=== PATIENT | male | born 1960 | race Caucasian/White ===

== ENCOUNTER 2020-05-19 06:59 | Outpatient (CLI) | payer BC, SELFPAY ==
--- NOTE | ~2020-05-19 | XR_ITS ---
XR thoracic spine min 4V DATE: 05/19/2020 07:27 INDICATION: Back pain TECHNIQUE: AP, lateral, swimmer's and bilateral oblique views COMPARISON: None FINDINGS: There is degenerative spurring of the lower thoracic spine. No fracture or dislocation or b one destruction. The thoracic pedicles are intact. No paraspinal soft tissue thickening. IMPRESSION: Degenerative spurring of the lower thoracic spine Reviewed, dictated and finalized at location A.
--- NOTE | ~2020-05-19 | XR_ITS ---
XR lumbar spine min 4V DATE: 05/19/2020 07:27 INDICATION: Low back pain, thoracic back pain TECHNIQUE: AP, lateral, bilateral oblique and coned lateral lumbosacral views COMPARISON: None FINDINGS: Normal alignment of the lumbar spine. No fracture or bone destruction, spondylolysis or spo ndylolisthesis. The lumbar pedicles are intact. The sacroiliac joints are intact. IMPRESSION: No significant abnormality Reviewed, dictated and finalized at location A. IMPRESSION: No significant abnormality
== END 2020-05-19 07:00 | disposition home or self-care (01) ==
LOC: ANHIMG 07:04
PROVIDERS: PCP Family Medicine; Visit Provider Family Medicine
DX: M54.6 Pain in thoracic spine (principal)
CPT/HCPCS: 72074; 72110

== ENCOUNTER 2021-12-01 15:29 | Outpatient (CLI) | payer BC, SELFPAY ==
--- NOTE | 2021-12-01 15:37 | ECG_ITS ---
Measurements Intervals [place] Rate: 68 P: 33 CT: 147 QRS: -10 QRSD: 109 T: 28 QT: 400 QTc: 426 Interpretive Statements SINUS RHYTHM LEFTWARD AXIS BORDERLINE ECG NO PREVIOUS ECG AVAILABLE FOR COMPARISON Electronically Signed On 12-01-2021 16:07:14 CDT by Thien Burden M.D.
[2021-12-01 16:18] LABS: Anion Gap 9 mmol/L (8-16); Blood Urea Nitrogen 22 mg/dL (9-20); Calcium 8.9 mg/dL (8.4-10.2); Carbon Dioxide 27 mmol/L (22-30); Chloride 101 mmol/L (98-107); Estimated Glomerular Filt Rate > 60; Glucose 89 mg/dL (65-110); Potassium 3.8 mmol/L (3.4-5.0); Sodium 137 mmol/L (137-145)
== END 2021-12-01 15:30 | disposition home or self-care (01) ==
PROVIDERS: Anesthesiology; PCP Family Medicine; Visit Provider Urology
DX: E11.65 Type 2 diabetes mellitus with hyperglycemia (principal); Z79.899 Other long term (current) drug therapy; E78.2 Mixed hyperlipidemia; I10 Essential (primary) hypertension; Z01.818 Encounter for other preprocedural examination; R94.31 Abnormal electrocardiogram [ECG] [EKG]
CPT/HCPCS: 36415; 80048; 93005

== ENCOUNTER 2021-12-08 00:28 | Day surgery (SDC) | payer BC, SELFPAY ==
[2021-11-29 09:25] VITALS: BMI 36.0
--- NOTE | 2021-11-29 09:36 | PC.NURSE ---
Report to the Outpatient Waiting Room, entrance under the green pavilion located off [facility], at time 7:30 on date 12/08/21. OR Time: 9:30. - You and your visitor will be asked a series of questions to screen for COVID 19 for your protection. - A mask is required within the hospital. One visitor will be allowed to accompany the patient into the hospital. Patients visitor will be instructed to remain with patient at all times or leave the building. We will allow the visitor to come back to the postoperative area when patient is ready. Preoperative COVID Testing Requirements: No COVID Test needed if: (proof is required; if not received patient will have Rapid Test prior to entry) - Patient has received COVID Vaccine at least 14 days prior to procedure date or - Patient has positive COVID test result within last 90 days of surgery date. COVID Test needed if above criteria is not met Patients may have clear liquids (water, carbonated beverages, clear teas, apple juice) until 3 hours prior to surgery with a maximum of 20 ounces. - No food from midnight until time of surgery Take the following medications with a SIP of water the morning of surgery: CITALOPRAM, LEVOTHYROXINE Medications to discontinue per physician: VITAMINS/SUPPLEMENTS Date to take last dose: 12/04/21 Please no make-up, nail tamazight, hairspray, perfume, deodorant, or body powder the day of surgery. No jewelry (including any body piercings) or valuables the day of surgery, leave them at home. Please take a shower or bath the night before, or the morning of, surgery with an antibacterial soap. Wear comfortable, loose fitting clothing. - Jewelry must be removed prior to entering the operating room. Rings and piercings that are not removed may be cut off. - The hospital will not accept responsibility for valuables. - Please leave all valuables, including medications, at home the day of surgery. If you are going home after surgery, a licensed stage driver must drive you home. - NO public transportation without another adult. - We recommend that an adult stay with you for 24 hours following discharge. - We also recommend that you do not drive, make important decision, drink alcoholic beverages, or take any drugs that were not prescribed by your health care provider for at least 24 hours after your discharge time. Follow any additional instructions given to you from your surgeon. Telephone instructions given to PRIYANKA LINCOLN and asked if any additional questions and then verbalized understanding. Patient advised to call surgeon office or pre surgery nurse liaison [phone] if any additional questions.
--- NOTE | 2021-12-01 13:36 | PM.HPGS ---
History of Present Illness History of Present Illness Consent: Risks, benefits, and alternatives have been discussed and questions answered. Patient agrees to proceed with procedure. Chief complaint: bph Narrative: Carlos Painter is a 61 year old male the with a history of progressive outlet obstructive voiding symptoms. Specifically he reports urinary frequency urgency with diminished stream and nocturia. 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 There was no appreciable median lobe. Transrectal ultrasound showed prostate volume 72 g. Most recent PSA was 2.6. He has failed attempts at medical management in after discussion of therapeutic options, including but not limited to, TURP, observation, Rezum, laser prostatectomy and UroLift he elects for the latter. He is aware of the risk of this procedure including, but not limited to, adverse cardiopulmonary events, persistent irritable and/or obstructive voiding symptoms, hematuria with need for short-term catheterization. Review of Systems Cardiovascular: Cardiovascular: Denies chest pain, Denies lightheadedness, Denies palpitations and Denies dyspnea Respiratory: Respiratory: Denies dyspnea Gastrointestinal: Gastrointestinal: Denies diarrhea, Denies nausea and Denies vomiting Genitourinary: Genitourinary: Denies hematuria and Denies dysuria Endocrine: Endocrine: Denies palpitations PMFSH Past Medical History Medical History Obstructive sleep apnea Family History Family History Father Depression Family history of cardiovascular disease Family history of sudden , Onset Age: 50 Mother Hypertension Sibling Hypertension Family history of elevated blood lipids Social History Social History Smoking status: Never smoker Alcohol intake: current Drinks per week: 2 Substance use: never Substance use type: does not use Spiritual care concerns: No Meds Home Medications and Allergies Home Medications Medication Instructions Recorded Confirmed Type tadalafil 20 mg tablet 20 mg PO DAILY PRN #30 tablet 05/03/20 11/29/21 Rx tamsulosin 0.4 mg capsule 0.4 mg PO DAILY #90 cap 11/18/20 11/29/21 Rx simvastatin 20 mg tablet See Rx Instructions .ROUTE 03/29/21 11/29/21 Rx .COMPLEX #90 tablet citalopram 40 mg tablet See Rx Instructions .ROUTE 10/25/21 03/22/22 Rx .COMPLEX #90 tablet testosterone cypionate 200 mg/mL 200 mg IM WEEKLY #10 ml 08/26/21 11/29/21 Rx intramuscular oil valsartan 160 See Rx Instructions .ROUTE 09/14/21 11/29/21 Rx mg-hydrochlorothiazide 25 mg tablet .COMPLEX #90 tablet levothyroxine [Synthroid] 88 mcg PO DAILY 11/29/21 11/29/21 History magnesium 100 mg PO DAILY 11/29/21 11/29/21 History multivitamin 1 tablet PO DAILY 11/29/21 11/29/21 History vitamin B complex [Complex B-100] 1 tablet PO DAILY 11/29/21 11/29/21 History metformin 500 mg tablet,extended See Rx Instructions .ROUTE 12/01/21 Rx release 24 hr .COMPLEX #360 tablet Allergies Allergy/AdvReac Type Severity Reaction Status Date / Time No Known Allergies Allergy Unverified 11/29/21 09:22 Exam Const: General: no acute distress Resp: Effort & Inspection: normal respiratory effort GI: Inspection: non-distended GI Palp: No abdominal tenderness and No Guarding due to palpation present (GI) Auscultation: normal bowel sounds Assessment and Plan Assessment and plan (1) BPH loc w urin obs/LUTS: Code(s): N40.1 - Benign prostatic hyperplasia with lower urinary tract symptoms Status: Acute Assessment and Plan: Urolift
--- NOTE | 2021-12-07 15:18 | WPDANESEPPF ---
Anes - Initial Pre Proc Eval Procedure: Operation Date: 12/08/21 09:30 Proposed Procedures p Urolift - Jorge A Carmona MD Date/Time: 12/07/21 15:18 Surgeon: Jorge A Carmona MD Pre Op Diagnosis: bph Patient Data Age: 61 Gender: M Height: 1.7 m Weight: 104.33 kg Allergies Allergy/AdvReac Type Severity Reaction Status Date / Time No Known Allergies Allergy Verified 12/08/21 07:52 Home Medications Medication Instructions Recorded Confirmed Type tadalafil 20 mg tablet 20 mg PO DAILY PRN #30 tablet 05/03/20 12/08/21 Rx tamsulosin 0.4 mg capsule 0.4 mg PO DAILY #90 cap 11/18/20 12/08/21 Rx simvastatin 20 mg tablet See Rx Instructions .ROUTE 03/29/21 12/08/21 Rx .COMPLEX #90 tablet citalopram 40 mg tablet See Rx Instructions .ROUTE 07/04/21 12/08/21 Rx .COMPLEX #90 tablet testosterone cypionate 200 mg/mL 200 mg IM WEEKLY #10 ml 08/26/21 12/08/21 Rx intramuscular oil valsartan 160 See Rx Instructions .ROUTE 09/14/21 12/08/21 Rx mg-hydrochlorothiazide 25 mg tablet .COMPLEX #90 tablet levothyroxine [Synthroid] 88 mcg PO DAILY 11/29/21 12/08/21 History magnesium 100 mg PO DAILY 11/29/21 12/08/21 History multivitamin 1 tablet PO DAILY 11/29/21 12/08/21 History vitamin B complex [Complex B-100] 1 tablet PO DAILY 11/29/21 12/08/21 History metformin 500 mg tablet,extended See Rx Instructions .ROUTE 12/01/21 Rx release 24 hr .COMPLEX #360 tablet Patient hx anesthesia problems: none Family hx anesthesia problems: none Results Review: All pre-operative results and documents have been reviewed as part of the pre-operative evaluation. [facility] Past Medical History Medical History (Updated 12/07/21 @ 15:20 by Papi Horne MD) Anxiety BPH loc w urin obs/LUTS Diabetes Essential (primary) hypertension Hypothyroidism (acquired) Mixed hyperlipidemia Obesity (BMI 35.0-39.9 without comorbidity) Obstructive sleep apnea KT on CPAP Family History Family History Father Depression Family history of cardiovascular disease Family history of sudden , Onset Age: 50 Mother Hypertension Sibling Hypertension Family history of elevated blood lipids Social History Social History Smoking status: Never smoker Alcohol intake: current Drinks per week: 2 Substance use: never Substance use type: does not use Living arrangements: with family Spiritual care concerns: No Anes - Eval Final PreProcedure Day of Procedure 12/07/21 15:18 Patient weight: obese Heart: regular rate and rhythm Lungs: clear to auscultation and normal air movement Airway: Mallampati scale class II Neurological: alert and oriented Last oral intake: >/= 8 hours ASA classification: III Emergent: no Anesthetic plan: proceed Anesthesia type and monitoring: general GIVS and LMA Results Review: All pre-operative results and documents have been reviewed as part of the pre-operative evaluation. Informed Consent: The patient's anesthetic plan and its attendant risks and benefits were discussed with the patient/family/POA. Questions were solicited and answers provided to the satisfaction of the patient/family/POA.
[2021-12-08] VITALS (7 sets, daily range): BP systolic 107–150; BP diastolic 56–77; PULSE 54–91; RESP 16–20; TEMP 36.1–36.4; O2SAT 95–97; BMI 38.3
--- NOTE | 2021-12-08 06:30 | WPDHPUPDATE1 ---
History and Physical Update Update Date/Time: 12/08/21 06:30 History and Physical has been reviewed, including an updated exam of the patient. There are NO changes in the patient's condition. Risks, benefits, and alternatives have been discussed and questions answered. Patient agrees to proceed with procedure.
[2021-12-08] MEDS: LACTATED RINGERS 1,000 ML 30 ML IV CONT (08:20)
[2021-12-08 08:23] LABS: Glucose Point of Care 133 mg/dl (65-105)
[2021-12-08] MEDS: ceFAZolin 2 GM/D5W 50 ML 2 GM/50 ML BAG IVPB (08:56)
[2021-12-08] MEDS: LIDOCAINE HCL 2% GEL UROJET 10 ML PKG MUCOUS MEM (09:12)
--- NOTE | 2021-12-08 09:20 | W.PM.PROC2 ---
Procedure Note - Detailed Date of Procedure 12/08/21 Pre-op Diagnosis BPH Post-op Diagnosis Same Procedure Performed UroLift Surgeon Jorge A Carmona MD Anesthesia General Description of Procedure The patient was prepped and draped in a routine fashion after the uneventful induction of a general LMA anesthetic. A 20F cystoscope was inserted into the bladder. The cystoscopy bridge was replaced with a UroLift delivery device. The first treatment site was the patient's right side approximately 1.5cm distal to the bladder neck. The distal tip of the delivery device was then angled laterally approximately 20 degrees at this position to compress the lateral lobe. The trigger was pulled, thereby deploying a needle containing the implant through the prostate. The needle was then retracted, allowing one end of the implant to be delivered to the capsular surface of the prostate. The implant was then tensioned to assure capsular seating and removal of slack monofilament. The device was then angled back toward midline and slowly advanced proximally (typically 3 to 4 mm) until cystoscopic verification of the monofilament being centered in the delivery bay. The urethral end piece was then affixed to the monofilament thereby tailoring the size of the implant. Excess filament was then severed. The delivery device was then re-advanced into the bladder. The delivery device was then replaced with cystoscope and bridge and the implant location and opening effect was confirmed cystoscopically. The same procedure was then repeated on the left side, and two additional implants were delivered just proximal to the verumontanum, again one on right and one on left side of the prostate, following the same technique. Cystoscopy then revealed a persistent area of obstruction/protrusion from right lateral lobe so, an addition implant was delivered in the mid-prostate on the right side Therefore, a total of 5 implants were delivered. A final cystoscopy was conducted first to inspect the location and state of each implant and second, to confirm the presence of a continuous anterior channel was present through the prostatic urethra with irrigation flow turned off. The bladder was then filled with 150 cc irrigation fluid to assist the patient in void trial after the procedure, and all instruments were removed. At this point the cystoscope was removed and the patient was taken to the PACU in good condition. Estimated Blood Loss 0 Drains No Packing No Pathology None sent Complications No immediate complications Condition Stable Disposition PACU
[2021-12-08 09:34] LABS: Glucose Point of Care 112 mg/dl (65-105)
--- NOTE | 2021-12-08 09:41 | SUR.PHASEI ---
0940: simple mask removed.
== END 2021-12-08 10:56 | disposition home or self-care (01) ==
PROVIDERS: PCP Family Medicine; Visit Provider Urology
PROC: 0T7D8DZ Dilation of Urethra with Intraluminal Device, Via Natural or Artificial Opening Endoscopic (ICD-10-PCS; CPT 52441; principal; 2021-12-08 09:30)
DX: N40.1 Benign prostatic hyperplasia with lower urinary tract symptoms (principal); N13.8 Other obstructive and reflux uropathy; R35.0 Frequency of micturition; R35.1 Nocturia; R39.198 Other difficulties with micturition; G47.33 Obstructive sleep apnea (adult) (pediatric); I10 Essential (primary) hypertension; E78.2 Mixed hyperlipidemia; E03.9 Hypothyroidism, unspecified; E11.9 Type 2 diabetes mellitus without complications; F41.9 Anxiety disorder, unspecified; E66.9 Obesity, unspecified; Z68.38 Body mass index [BMI] 38.0-38.9, adult; Z79.84 Long term (current) use of oral hypoglycemic drugs
CPT/HCPCS: 52441; 52442 ×4; 82948; J0690; J2250; J2405; J2704; J3010; J7120; L8699

== ENCOUNTER 2023-07-08 09:57 | Emergency (ER) | payer BC, SELFPAY ==
[2023-07-08 10:10] VITALS: BP 158/71; PULSE 65; RESP 16; TEMP 36.4; O2SAT 97
--- NOTE | 2023-07-08 10:18 | ED.URI ---
HPI - URI/Sore Throat General Chief Complaint: Upper Respiratory Infection Stated Complaint: Sore Throat Time Seen by Provider: 07/08/23 10:18 Source: patient, RN notes reviewed and old records reviewed Mode of arrival: ambulatory Limitations: no limitations History of Present Illness HPI Narrative: 63-year-old male presents to the [facility] with complaints of a sore throat since Sunday, 6 days ago. States he has not taken any cold medicine. Has taken some Tylenol for the sore throat Denies any fevers. Denies any chest pain, shortness of breath. Patient reports he has not taken his blood pressure medication today or yesterday. Does have a history of hypertension Onset (ago): day(s) (6) Related Data Home Medications Medication Instructions Recorded Confirmed magnesium 100 mg capsule 100 mg PO DAILY 11/29/21 07/08/23 multivitamin 1 tablet PO DAILY 11/29/21 07/08/23 vitamin B complex (Complex B-100 1 tablet PO DAILY 11/29/21 07/08/23 tablet,extended release) tadalafil 5 mg tablet (Cialis) 5 mg PO DAILY 04/03/22 07/08/23 Allergies Allergy/AdvReac Type Severity Reaction Status Date / Time No Known Allergies Allergy Verified 07/08/23 10:05 Review of Systems Review of Systems: All systems reviewed & are unremarkable except as noted in HPI and below Constitutional: Constitutional: Reports no additional constitutional complaints Eyes: Eyes: Reports no additional eye complaints ENT: Reports as per HPI, Reports sore throat and Denies throat swelling Cardiovascular: Cardiovascular: Reports no additional cardiovascular complaints, Denies chest pain and Denies dyspnea Respiratory: Respiratory: Reports no additional respiratory complaints, Denies chest congestion, Denies cough and Denies dyspnea Gastrointestinal: Gastrointestinal: Reports no additional gastrointestinal complaints, Denies abdominal pain, Denies nausea and Denies vomiting Musculoskeletal: Musculoskeletal: Reports no additional musculoskeletal complaints Integumentary/Breasts: Skin/Breast: Reports system reviewed and no additional complaints, except as docu Neurologic: Reports system reviewed and no additional complaints, except as documented Psychiatric: Psychiatric: Reports no additional psychiatric complaints Allergic/Immunologic: Allergic/Immunologic: Reports no additional allergic/immunologic complaints PMFSH Past Medical History Medical History Anxiety BPH loc w urin obs/LUTS Diabetes Essential (primary) hypertension Hypothyroidism (acquired) Mixed hyperlipidemia Obesity (BMI 35.0-39.9 without comorbidity) Obstructive sleep apnea KT on CPAP Family History Family History Father Depression Family history of cardiovascular disease Family history of sudden , Onset Age: 50 Mother Hypertension Sibling Hypertension Family history of elevated blood lipids Social History Social History Smoking status: Never smoker Alcohol intake: current Drinks per week: 2 Substance use: never Substance use type: does not use Living arrangements: with family Spiritual care concerns: No Comments At the time of my signature, I reviewed and agree with the nursing past medical, surgical, social, and family history. There is no relevant family history pertinent to the patient complaint. Exam Const: General: cooperative, healthy appearing, comfortable, no acute distress, well developed, alert and well nourished Nutritional Appearance: well nourished and obese Orientation/consciousness: patient oriented x3 Limitations: no limitations HENMT: Head: normal to inspection Ears: hearing grossly normal bilaterally, external ears normal, TM's normal bilaterally, EAC's normal, mastoids normal and no periauricular adenopathy Face/Nose/Sinus: Normal external nose present
== END 2023-07-08 10:29 | disposition home or self-care (01) ==
PROVIDERS: Emergency Provider Nurse Practitioner; PCP Emergency Medicine
DX: J02.9 Acute pharyngitis, unspecified (principal); J06.9 Acute upper respiratory infection, unspecified; R09.82 Postnasal drip; N40.1 Benign prostatic hyperplasia with lower urinary tract symptoms; E11.9 Type 2 diabetes mellitus without complications; I10 Essential (primary) hypertension; E03.9 Hypothyroidism, unspecified; E78.2 Mixed hyperlipidemia; E66.9 Obesity, unspecified; Z68.37 Body mass index [BMI] 37.0-37.9, adult; G47.33 Obstructive sleep apnea (adult) (pediatric); F41.9 Anxiety disorder, unspecified
CPT/HCPCS: 87081; 87880; 99213; G0463

== ENCOUNTER 2023-07-26 08:01 | Outpatient (CLI) | payer BC, SELFPAY ==
[2023-07-30 12:17] LABS: Testosterone Total 240 ng/dL (250-1100)
== END 2023-07-26 08:02 | disposition home or self-care (01) ==
LOC: ANHGOSHLAB 08:02
PROVIDERS: PCP Emergency Medicine; Visit Provider Emergency Medicine
DX: E29.1 Testicular hypofunction (principal); J30.2 Other seasonal allergic rhinitis
CPT/HCPCS: 36415; 84403

== ENCOUNTER 2024-01-31 11:42 | Emergency (ER) | payer MEDICARE, OTHER, SELFPAY ==
--- NOTE | 2024-01-31 11:43 | ED.URI ---
HPI - URI/Sore Throat General Chief Complaint: Upper Respiratory Infection Stated Complaint: + COVID Time Seen by Provider: 01/31/24 12:02 Source: patient, RN notes reviewed and old records reviewed Mode of arrival: ambulatory Limitations: no limitations History of Present Illness HPI Narrative: 63-year-old male presents to the [facility] with concerns of tested positive for COVID-19. Per medical record patient was prescribed Paxlovid 01/21/24 Patient states that he started feel better but retested for COVID today and states it was positive again. Patient still with fatigue, runny nose, intermittent cough Denies ever having COVID in the past Treatments prior to arrival: other Related Data Home Medications Medication Instructions Recorded Confirmed magnesium 100 mg capsule 100 mg PO DAILY 11/29/21 01/31/24 multivitamin 1 tablet PO DAILY 11/29/21 01/31/24 mecobalamin (vitamin B12) 1,000 1,000 mcg PO DAILY 12/11/23 01/31/24 mcg chewable tablet (B12 Active) tamsulosin 0.4 mg capsule 0.4 mg PO HS 12/11/23 01/31/24 Allergies Allergy/AdvReac Type Severity Reaction Status Date / Time No Known Allergies Allergy Verified 01/30/24 09:23 Review of Systems Review of Systems: All systems reviewed & are unremarkable except as noted in HPI and below Constitutional: Constitutional: Reports as per HPI and Reports fatigue Eyes: Eyes: Reports no additional eye complaints ENT: Reports as per HPI Cardiovascular: Cardiovascular: Reports no additional cardiovascular complaints, Denies chest pain and Denies dyspnea Respiratory: Respiratory: Reports as per HPI, Denies chest congestion, Reports cough and Denies dyspnea Gastrointestinal: Gastrointestinal: Reports no additional gastrointestinal complaints, Denies abdominal pain, Denies nausea and Denies vomiting Musculoskeletal: Musculoskeletal: Reports no additional musculoskeletal complaints Integumentary/Breasts: Skin/Breast: Reports system reviewed and no additional complaints, except as docu Neurologic: Reports system reviewed and no additional complaints, except as documented Psychiatric: Psychiatric: Reports no additional psychiatric complaints Allergic/Immunologic: Allergic/Immunologic: Reports no additional allergic/immunologic complaints PMFSH Past Medical History Medical History Anxiety BPH loc w urin obs/LUTS Diabetes Essential (primary) hypertension Hypothyroidism (acquired) Mixed hyperlipidemia Obesity (BMI 35.0-39.9 without comorbidity) Obstructive sleep apnea KT on CPAP Family History Family History Father Depression Family history of cardiovascular disease Family history of sudden , Onset Age: 50 Mother Hypertension Sibling Hypertension Family history of elevated blood lipids Social History Social History Smoking status: Never smoker Alcohol intake: current Drinks per week: 2 Substance use: never Substance use type: does not use Living arrangements: with family Spiritual care concerns: No Comments At the time of my signature, I reviewed and agree with the nursing past medical, surgical, social, and family history. There is no relevant family history pertinent to the patient complaint. Exam Const: General: cooperative, healthy appearing, comfortable, no acute distress, well developed, alert and well nourished Nutritional Appearance: well nourished and obese Orientation/consciousness: patient oriented x3 Limitations: no limitations HENMT: Head: normal to inspection Ears: hearing grossly normal bilaterally, external ears normal, TM's normal bilaterally, EAC's normal, mastoids normal and no periauricular adenopathy Face/Nose/Sinus: Normal external nose present, Normal nares present, Normal nasal mucous membranes and turbinates present, No nasal d
[2024-01-31 11:56] VITALS: BP 137/96; PULSE 96; RESP 15; TEMP 36.7; O2SAT 98
== END 2024-01-31 12:13 | disposition home or self-care (01) ==
PROVIDERS: Emergency Provider Nurse Practitioner; PCP Emergency Medicine
DX: R53.83 Other fatigue (principal); Z86.16 Personal history of COVID-19; N40.1 Benign prostatic hyperplasia with lower urinary tract symptoms; E11.9 Type 2 diabetes mellitus without complications; I10 Essential (primary) hypertension; E03.9 Hypothyroidism, unspecified; E78.2 Mixed hyperlipidemia; E66.9 Obesity, unspecified; Z68.36 Body mass index [BMI] 36.0-36.9, adult; G47.33 Obstructive sleep apnea (adult) (pediatric)
CPT/HCPCS: 99211; G0463

== ENCOUNTER 2024-04-01 09:20 | Outpatient (CLI) | payer MEDICARE, OTHER, SELFPAY ==
[2024-04-01 17:53] LABS: Prostate Specific Antigen 3.6 ng/mL (< OR = 4.0)
[2024-04-05 07:29] LABS: Testosterone Total 387 ng/dL (250-1100)
== END 2024-04-01 09:21 | disposition home or self-care (01) ==
LOC: ANHGOSHLAB 09:22
PROVIDERS: PCP Emergency Medicine; Visit Provider Emergency Medicine
DX: R39.11 Hesitancy of micturition (principal); E29.1 Testicular hypofunction; Z12.5 Encounter for screening for malignant neoplasm of prostate
CPT/HCPCS: 36415; 84153; 84403; G0103

== ENCOUNTER 2024-07-25 10:46 | Outpatient (CLI) | payer MEDICARE, OTHER, SELFPAY ==
--- NOTE | ~2024-07-25 | XR_ITS ---
EXAMINATION: XR shoulder RT min 2V DATE: 07/25/2024 11:00 INDICATION: Chronic nontraumatic bilateral shoulder pain and limited range of motion TECHNIQUE: 1. AP internally and externally rotated, AP oblique externally rotated and transscapular Y views of t he right shoulder were obtained. 2. AP internally and externally rotated, AP oblique externally rotated and transscapular Y views of t he left shoulder were obtained. COMPARISON: None FINDINGS: Normal alignment at both shoulders. No fracture.Relatively symmetric mild osteoarthritis at the bila teral glenohumeral and acromioclavicular joints. Tiny calcific density situated between the middle an d posterior facets of the left greater tuberosity consistent with calcific tendinitis. Soft tissues a re otherwise unremarkable. Visualized portion of the lungs are clear. IMPRESSION: 1. Mild bilateral glenohumeral and acromial clavicular osteoarthritis. 2. Tiny focus of left rotator cuff calcific tendinitis the region of the inferior infraspinatus or te res minor tendons. Reviewed, dictated and finalized at location B. [employer] IMPRESSION: 1. Mild bilateral glenohumeral and acromial clavicular osteoarthritis. 2. Tiny focus of left rotator cuff calcific tendinitis the region of the inferi or infraspinatus or teres minor tendons.
--- NOTE | ~2024-07-25 | XR_ITS ---
EXAMINATION: XR shoulder LT min 2V DATE: 07/25/2024 11:00 INDICATION: Chronic nontraumatic bilateral shoulder pain and limited range of motion TECHNIQUE: 1. AP internally and externally rotated, AP oblique externally rotated and transscapular Y views of t he right shoulder were obtained. 2. AP internally and externally rotated, AP oblique externally rotated and transscapular Y views of t he left shoulder were obtained. COMPARISON: None FINDINGS: Normal alignment at both shoulders. No fracture.Relatively symmetric mild osteoarthritis at the bila teral glenohumeral and acromioclavicular joints. Tiny calcific density situated between the middle an d posterior facets of the left greater tuberosity consistent with calcific tendinitis. Soft tissues a re otherwise unremarkable. Visualized portion of the lungs are clear. IMPRESSION: 1. Mild bilateral glenohumeral and acromial clavicular osteoarthritis. 2. Tiny focus of left rotator cuff calcific tendinitis the region of the inferior infraspinatus or te res minor tendons. Reviewed, dictated and finalized at location B. [employer] IMPRESSION: 1. Mild bilateral glenohumeral and acromial clavicular osteoarthritis. 2. Tiny focus of left rotator cuff calcific tendinitis the region of the inferi or infraspinatus or teres minor tendons.
== END 2024-07-25 10:47 | disposition home or self-care (01) ==
PROVIDERS: PCP Family Medicine; Visit Provider Nurse Practitioner Family
DX: M19.011 Primary osteoarthritis, right shoulder (principal); M19.012 Primary osteoarthritis, left shoulder
CPT/HCPCS: 73030

== ENCOUNTER 2025-01-15 07:43 | Outpatient (CLI) | payer MEDICARE, OTHER, SELFPAY ==
--- NOTE | ~2025-01-15 | XR_ITS ---
Right Shoulder Technique: AP and axillary views were obtained. Clinical History: Pain Findings: No fracture or dislocation is seen. Osseous alignment is anatomic. The glenohumeral and acr omioclavicular joint spaces are preserved. Soft tissues are unremarkable. Impression: Unremarkable right shoulder radiographs. Reviewed, dictated and finalized at [facility]. Impression: Unremarkable right shoulder radiographs.
--- NOTE | ~2025-01-15 | XR_ITS ---
Left Shoulder Technique: AP and axillary views were obtained. Clinical History: Pain Findings: No fracture or dislocation is seen. Osseous alignment is anatomic. The glenohumeral and acr omioclavicular joint spaces are preserved. Possible small focus of calcific tendinitis of the distal rotator cuff insertion. Impression: Possible small focus of calcific tendinitis at the distal rotator cuff insertion. Reviewed, dictated and finalized at location . Impression: Possible small focus of calcific tendinitis at the distal rotator cuff insertio n.
== END 2025-01-15 07:44 | disposition home or self-care (01) ==
PROVIDERS: PCP Family Medicine; Visit Provider Orthopaedic Surgery
DX: M25.511 Pain in right shoulder (principal); M25.512 Pain in left shoulder
CPT/HCPCS: 73030

== ENCOUNTER 2025-08-19 09:03 | Outpatient (CLI) | payer MEDICARE, OTHER, SELFPAY ==
[2025-08-19 13:11] LABS: Hematocrit 45.8 % (42.0-52.0); Hemoglobin 14.9 g/dL (14.0-18.0); Immature Granulocyte Percent A 0.5 % (0-0.5); Lymphocytes Absolute Auto 2.55 K/mm3 (0.9-3.2); Mean Corpuscular HGB Conc 32.5 g/dl (32-36); Mean Corpuscular Hemoglobin 28.2 pg (26-34); Mean Corpuscular Volume 86.7 fl (80-100); Nucleated Red Blood Cells Absolute Auto 0.000 K/mm3 (0.0-0.012); Nucleated Red Blood Cells Perc 0.0 % (0.0-0.2); Platelet Count Result 277 k/mm3 (150-375); Red Blood Count 5.28 M/mm3 (4.6-6.20); White Blood Count 5.9 K/mm3 (4.5-10.0)
[2025-08-19 13:56] LABS: MALB Creatinine Ratio 8.9 mg/g (0-30)
[2025-08-19 15:14] LABS: Alanine Aminotransferase 24 U/L (6-50); Albumin Level 4.5 g/dL (3.5-5.1); Alkaline Phosphatase 67 U/L (38-126); Anion Gap 8 mmol/L (4-12); Aspartate Amino Transferase 53 U/L (17-59); Bilirubin,Total 0.6 mg/dL (0.2-1.3); Blood Urea Nitrogen 19 mg/dL (9-20); Calcium 9.0 mg/dL (8.4-10.2); Carbon Dioxide 27 mmol/L (22-30); Chloride 102 mmol/L (98-107); Cholesterol 144 mg/dL (0-200); Estimated Glomerular Filt Rate > 60; Glucose 85 mg/dL (65-110); HDL Direct 42 mg/dL; Potassium 3.6 mmol/L (3.4-5.0); Sodium 137 mmol/L (137-145); Total Protein 7.3 g/dL (6.3-8.2); Triglycerides 110 mg/dL (<150)
[2025-08-19 16:00] LABS: Prostate Specific Antigen 3.3 ng/mL (< OR = 4.0); Thyroid Stimulating Hormone 0.130 uIU/mL (0.465-4.680)
[2025-08-19 18:29] LABS: Hemoglobin A1C 5.7 % (<5.7)
== END 2025-08-19 09:04 | disposition home or self-care (01) ==
PROVIDERS: PCP Family Medicine; Visit Provider Family Medicine
DX: E11.65 Type 2 diabetes mellitus with hyperglycemia (principal); E03.9 Hypothyroidism, unspecified; R94.5 Abnormal results of liver function studies; E78.2 Mixed hyperlipidemia; N40.1 Benign prostatic hyperplasia with lower urinary tract symptoms; Z12.5 Encounter for screening for malignant neoplasm of prostate
CPT/HCPCS: 36415; 80053; 80061; 82043; 83036; 84153; 84443; 85025; G0103